=== PATIENT | male | born 1995 | race Caucasian/White ===

== ENCOUNTER 2018-09-02 13:04 | Emergency (ER) | payer BC ==
--- NOTE | 2018-09-02 14:13 | ED ---
General Adult HPI - General Stated complaint: rt knee injury Time Seen by Provider: 09/02/18 14:08 - History of Present Illness Initial comments: 23-year-old male with past history of previous right knee injury presents today for chief complaint of right knee pain x 1 day. Patient states that he was snow blowing last night when he went to take a turn and he felt his right knee give out, he denies dislocation. Since has noted right knee swelling and increasing pain, increased pain with ambulation. Patient states he has had issues with laxity since his previous right knee injury in high school. Patient denies any numbness, tingling, loss sensation, pallor or coolness of the extremity. Patient is concerned about ligamentous injury and presents today for evaluation. Upon arrival patient complaining of right knee pain. HR elevated, no acute distress. Pain does not appear out of proportion. Remaining ROS (-), patient denies falling, head injury, fever, chills, shortness of breath, chest pain, back pain, abdominal pain, nausea or vomiting, dysuria or hematuria, constipation or diarrhea, headaches or visual changes, or any other complaints. - Related Data Home Medications Medication Instructions Recorded Confirmed Dextroamphetamine/Amphetamine 20 mg PO QAM 09/02/18 09/02/18 [Adderall Xr] Previous Rx's Medication Instructions Recorded Ibuprofen 800 mg PO Q8H PRN 7 Days #21 tablet 09/02/18 Allergies Allergy/AdvReac Type Severity Reaction Status Date / Time No Known Allergies Allergy Verified 09/02/18 14:19 Review of Systems ROS Statement: Those systems with pertinent positive or pertinent negative responses have been documented in the HPI. ROS Other: All systems not noted in ROS Statement are negative. Past Medical History Past Medical History: No Reported History History of Any Multi-Drug Resistant Organisms: None Reported Past Surgical History: No Surgical Hx Reported Past Psychological History: Anxiety, Depression Smoking Status: Former smoker Past Alcohol Use History: Heavy, Occasional Past Drug Use History: Marijuana General Exam - General Exam Comments Initial Comments: General: The patient is awake and alert, in no distress, and does not appear acutely ill. Eye: Pupils are equal, round and reactive to light, extra-ocular movements are intact. No nystagmus. There is normal conjunctiva bilaterally. No signs of icterus. Ears, nose, mouth and throat: There are moist mucous membranes and no oral lesions. Cardiovascular: There is a regular rate and rhythm. No murmur, rub or gallop is appreciated. Respiratory: Lungs are clear to auscultation, respirations are non-labored, breath sounds are equal. No wheezes, stridor, rales, or rhonchi. Musculoskeletal: Upon section of the right knee there is significant soft tissue swelling, no ecchymosis. Patient is unable to fully range at the right knee secondary to pain. There is significant effusion palpated on the medial aspect of the right knee. No sign of confusion palpate on the lateral aspect. No gross deformity. Patient unable to strength testing at the knee secondary pain. Full strength and range of motion at the right hip ankle and toes. Sensation intact both proximal distal injury, compartments soft and compressible. DP pulses strong equal bilaterally 2+. Evidence of footdrop. Neurological: A&O x 3. CN II-XII intact, There are no obvious motor or sensory deficits. Coordination appears grossly intact. Speech is normal. Skin: Skin is warm and dry and no rashes or lesions are noted. Psychiatric: Cooperative, appropriate mood & affect, normal judgment. Course Vital Signs 09/02/18 14:14 Temperature 99.0 F Pulse Rate 102 H Respiratory 16 Rate Blood Pressure 140/82 O2 Sat by Pulse 100 Oximetry Medical Decision Making - Medical Decision Making 23yo male presenting to the emergency department for right knee pain. Physical examination concerning for ligamentous injury. Patient neurovascularly intact. X-ray revealed indications concerning for a MCL tear/injury. Patient has knee effusion on examination. There is no evidence of fracture of the tibia or femur, no patella fracture. No evidence of dislocation. Patient placed in a knee immobilizer. She was provided prescription for crutches. Patient was given nonweightbearing instructions. Patient was instructed to follow-up with the next 24 hours with oral intake surgery for further evaluation. Patient is given a work note, instructed not to work until orthopedic clearance. Patient was giving a starting pack of Tylenol No. 3, I discussed at length the risks associated with tylenol #3 including overdose, diction . Patient is agreeable and was educated in the proper administration of medication. Patient was given Rice instruction as well as use of ibuprofen 800 for inflammation. Discussion with patient about return parameters, denies questions at this time. Verbalized understanding. Patient was discharged in stable condition after reviewing radiographic imagings with attending shuttle bus driver Dr. Perez who agreed with impression and plan. Disposition Clinical Impression: Right knee buckling, Right knee injury Disposition: HOME SELF-CARE Condition: Good Instructions (If sedation given, give patient instructions): Knee Sprain (ED) Additional Instructions: Please use medication as discussed. Please follow-up with orthopedic surgery in the next 24 hours. ALWAYS AMBULATE WITH THE KNEE IMMOBILIZER. Please use crutches for ambulation. Please return to emergency room if the symptoms increase or worsen or for any other concerns, as discussed.. Prescriptions: Ibuprofen 800 mg PO Q8H PRN 7 Days #21 tablet PRN Reason: Pain Is patient prescribed a controlled substance at d/c from ED?: No Referrals: Cuong Taveras MD [REFERRING] - 1-2 days Zaki Garcia DO [Doctor of Osteopathic Medicine] - 1-2 days Time of Disposition: 15:13
[2018-09-02] MEDS ORDERED: KETOROLAC 30 MG/ML 1 ML VIAL IM STA (14:26)
--- NOTE | 2018-09-02 14:52 | XR ---
Right knee HISTORY: Right knee pain 3 views of the right knee, correlation prior exam 11/20/2013 Probable bone island present in the proximal metaphysis of the right tibia. There is a crescentic anna cification present within the soft tissues medial to the medial femoral condyle of the distal femur. Alignment is maintained. Ossific density medial to the patella appears well-corticated spine likely t o be chronic. Suprapatellar joint effusion is present. 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 Joint effusion. Knee MRI may be of benefit.
[2018-09-02 15:00] VITALS: BP 140/82; PULSE 102; RESP 16; TEMP 99
[2018-09-02] MEDS ORDERED: ACET/COD 300 MG/30 MG STARTER PACK 6 TAB BTL PO STA (15:14)
== END 2018-09-02 15:49 | disposition home or self-care (01) ==
LOC: EC 13:04
DX: S89.91XA Unspecified injury of right lower leg, initial encounter (principal); Z87.891 Personal history of nicotine dependence; Z79.899 Other long term (current) drug therapy; Z87.828 Personal history of other (healed) physical injury and trauma; X50.1XXA Overexertion from prolonged static or awkward postures, initial encounter; Y93.29 Activity, other involving ice and snow
CPT/HCPCS: 73562; 99283; 96372; L1830; J1885

== ENCOUNTER → 2018-09-08 | Outpatient (CLI) | payer BC ==
--- NOTE | 2018-09-08 23:12 | MR ---
EXAMINATION TYPE: MR knee RT wo con DATE OF EXAM: 09/08/2018 COMPARISON: Radiographs 09/02/2018 HISTORY: 23-year-old male with right knee pain TECHNIQUE: Multiplanar, multisequence imaging of the right knee is performed without IV contrast. FINDINGS: The ACL and PCL are intact. There is extensive edema on either side of the MCL with a some tearing of the superficial fibers. LCL complex is intact. There is a complex oblique tear involving the posterior horn and body of the medial meniscus. Mild di ffuse thinning of medial compartment articular cartilage without discrete chondral injury. Lateral meniscus is intact. However, there is a focal area of focal chondral loss that appears full-t hickness to nearly full-thickness along the mid peripheral aspect of the lateral femoral condyle deepti uring 9 mm wide and 1.3 cm AP. Underlying bone marrow edema. 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 ETT-T2 distances approximately 1.1 cm, within normal limits. The medial patellofemoral ligament appears heterogeneous and redundant in the femoral attachment is n ot well delineated. Edema extends into the medial margin of the medial rectus muscle.. Kissing contusions involving the medial patella and anterior aspect of the lateral femoral condyle. T here is a small 9 mm bone fragment along the medial margin of the patella suggesting an age indetermi mauricio small fracture, suspected old as marrow edema seems to be centered slightly lower than this joni on. There is a large knee joint effusion with loose bodies in the medial gutter of the suprapatellar pouc h. One fragment measures up to 1.6 cm, refer to sagittal image 2 and may represent the missing chondr al fragment. Extensor mechanism is intact. Mild extravasation of joint fluid within the deep soft tissues. No sizable Reese's cyst. Normal popliteal artery anatomy in muscle bulk. No suspicious bone marrow replacement. IMPRESSION: 1. Kissing contusions relating to transient lateral patellar dislocation and relocation. 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 A small 9 mm bone fragment along the medial margin of the patella is suspected to represent an old n onunited fracture fragment. The acute edema is located slightly lower. 2. Heterogeneous and lax MPFL with poorly defined femoral attachment suggesting tear. 3. Focal 9 mm wide by 1.3 cm AP full-thickness to nearly full-thickness chondral injury involving the mid peripheral aspect of the lateral femoral condyle. Associated marrow edema. The missing chondral fragment is suspected to be located in the medial gutter of the suprapatellar pouch. 4. Grade 2 MCL sprain. 5. Complex oblique tear posterior horn and body of the medial meniscus. 6. Large knee joint effusion with some extravasation of joint fluid into the deep soft tissues.
== END | disposition home or self-care (01) ==
LOC: RADMRIMAIN 10:45
PROVIDERS: ATTEND Orthopaedic Surgery
DX: S83.014A Lateral dislocation of right patella, initial encounter (principal); S83.231A Complex tear of medial meniscus, current injury, right knee, initial encounter; S80.01XA Contusion of right knee, initial encounter; S83.411A Sprain of medial collateral ligament of right knee, initial encounter; Q74.1 Congenital malformation of knee; M25.461 Effusion, right knee

== ENCOUNTER → 2018-09-23 | Outpatient (CLI) | payer BC ==
[2018-09-23 11:52] LABS: Basophils # (A) 0.1 k/uL (0-0.2); Basophils % (A) 1 %; Eosinophils # (A) 0.2 k/uL (0-0.7); Eosinophils % (A) 2 %; HCT 51.9 % (39.0-53.0); HGB 17.4 gm/dL (13.0-17.5); Lymphocytes # (A) 1.9 k/uL (1.0-4.8); Lymphocytes % (A) 28 %; MCHC 33.5 g/dL (31.0-37.0); MCV 89.7 fL (80.0-100.0); Mean Platelet Volume 6.4; Monocytes # (A) 0.5 k/uL (0-1.0); Monocytes % (A) 7 %; Neutrophils # (A) 3.9 k/uL (1.3-7.7); Neutrophils % (A) 58 %; Platelet Count 197 k/uL (150-450); RBC 5.78 m/uL (4.30-5.90); WBC 6.7 k/uL (3.8-10.6)
[2018-09-23 11:59] LABS: Potassium 4.4 mmol/L (3.5-5.1)
== END | disposition home or self-care (01) ==
LOC: LABPAT 11:23
PROVIDERS: ATTEND Orthopaedic Surgery
DX: Z01.812 Encounter for preprocedural laboratory examination (principal); M23.91 Unspecified internal derangement of right knee
CPT/HCPCS: 36415; 80051; 85025

== ENCOUNTER 2020-03-30 10:51 | Emergency (ER) | payer BC, OTHER ==
[2020-03-30 10:58] VITALS: RESP 16; TEMP 98
--- NOTE | 2020-03-30 11:17 | ED ---
Fall HPI - General Chief Complaint: Fall Stated Complaint: [facility] - rt rt knee injury Time Seen by Provider: 03/30/20 11:02 Source: patient, RN notes reviewed Mode of arrival: ambulatory Limitations: no limitations - History of Present Illness Initial Comments: 24-year-old male presents emergency from chief complaint of right knee pain. Patient states that he was walking when a mat slipped as job site. Patient states that his knee went laterally. Patient states she has medial knee pain. Patient states he had surgery approximately year and half ago. Patient states that his orthopedic surgeon Dr. Garcia. Patient states he is able to family but states it's moderate discomfort. Patient states he feels loose. Patient denies any other injuries from his fall. - Related Data Home Medications Medication Instructions Recorded Confirmed Dextroamphetamine/Amphetamine 20 mg PO QAM 09/02/18 10/07/18 [Adderall Xr] Previous Rx's Medication Instructions Recorded Ibuprofen 800 mg PO Q8H PRN 7 Days #21 tablet 09/02/18 HYDROcodone/APAP 5-325MG [[place] 5] 1 each PO Q6HR PRN #12 tab 10/07/18 Ibuprofen [Motrin] 600 mg PO Q8HR PRN #20 tab 03/30/20 Allergies Allergy/AdvReac Type Severity Reaction Status Date / Time No Known Allergies Allergy Verified 03/30/20 10:54 Review of Systems ROS Statement: Those systems with pertinent positive or pertinent negative responses have been documented in the HPI. ROS Other: All systems not noted in ROS Statement are negative. Past Medical History Past Medical History: No Reported History History of Any Multi-Drug Resistant Organisms: None Reported Past Surgical History: No Surgical Hx Reported Additional Past Surgical History / Comment(s): right knee sx 2019 Past Psychological History: Anxiety, Depression Smoking Status: Never smoker Past Alcohol Use History: Heavy, Occasional Past Drug Use History: Marijuana General Exam Limitations: no limitations General appearance: alert, in no apparent distress Head exam: Present: atraumatic, normocephalic, normal inspection Eye exam: Present: normal appearance, PERRL, EOMI. Absent: scleral icterus, conjunctival injection, periorbital swelling Respiratory exam: Present: normal lung sounds bilaterally. Absent: respiratory distress, wheezes, rales, rhonchi, stridor Cardiovascular Exam: Present: regular rate, normal rhythm, normal heart sounds. Absent: systolic murmur, diastolic murmur, rubs, gallop, clicks Extremities exam: Present: other (Right knee there is pain with valgus, no definite laxity, neurovascular intact there is no localized tenderness with palpation, neurovascular intact, no pain above and below the right knee) Course Vital Signs 03/30/20 10:54 Temperature 98.0 F Pulse Rate 95 Respiratory 16 Rate Blood Pressure 139/98 O2 Sat by Pulse 100 Oximetry Medical Decision Making - Medical Decision Making Peripheral presented for right knee pain x-ray does not show any bony osseous lesion. Patient had prior ligamentous injuries to be placed any immobilizer and follow-up with his orthopedic surgeon. Disposition Clinical Impression: Fall, Right knee sprain Disposition: HOME SELF-CARE Condition: Stable Instructions (If sedation given, give patient instructions): Knee Sprain (ED) Additional Instructions: Please return to the Emergency Department if symptoms worsen or any other con cerns. Prescriptions: Ibuprofen [Motrin] 600 mg PO Q8HR PRN #20 tab PRN Reason: Pain Is patient prescribed a controlled substance at d/c from ED?: No Referrals: Kenna Perez MD [Primary Care Provider] - 1-2 days Zaki Garcia DO [Doctor of Osteopathic Medicine] - 1-2 days Time of Disposition: 11:55
--- NOTE | 2020-03-30 11:33 | XR ---
EXAMINATION TYPE: XR knee complete RT DATE OF EXAM: 03/30/2020 COMPARISON: 09/02/2018 HISTORY: Pain TECHNIQUE: Three views are submitted. FINDINGS: Joint spaces are preserved. Osseous structures are intact. No acute fracture seen. Well-corticated density seen along the medial femoral condyle could be related to remote trauma. Sclerotic lesion in volving the proximal diaphysis tibia could be associated with a bone island. IMPRESSION: 1. No acute fracture or dislocation. If there is concern for ligamentous injury correlate with MRI a s clinically warranted
[2020-03-30 12:12] VITALS: BP 132/86; PULSE 86
== END 2020-03-30 12:09 | disposition home or self-care (01) ==
LOC: EC 10:51
DX: S83.91XA Sprain of unspecified site of right knee, initial encounter (principal); M21.061 Valgus deformity, not elsewhere classified, right knee; W01.10XA Fall on same level from slipping, tripping and stumbling with subsequent striking against unspecified object, initial encounter; Y92.69 Other specified industrial and construction area as the place of occurrence of the external cause; Y99.0 Civilian activity done for income or pay
CPT/HCPCS: 99283

== ENCOUNTER → 2020-04-05 | Outpatient (CLI) | payer OTHER ==
--- NOTE | 2020-04-05 16:56 | MR ---
EXAMINATION TYPE: MR knee RT wo con DATE OF EXAM: 04/05/2020 COMPARISON: 09/08/2018 HISTORY: Right knee pain, S/P fall 1 week ago TECHNIQUE: Multiplanar, multisequence imaging of the right knee is performed without IV contrast. FINDINGS: MEDIAL MENISCUS: There is a complex tear the posterior horn medial meniscus communicating with the in ferior articular surface. Anterior horn medial meniscus is intact. LATERAL MENISCUS: Anterior and posterior horns are intact without tear. Mild horizontal degenerative type change may be in the posterior horn lateral meniscus. CRUCIATE LIGAMENTS: The anterior and posterior cruciate ligaments are intact and unremarkable. COLLATERAL LIGAMENTS: The medial collateral ligament and lateral collateral ligament complex are inta ct and unremarkable. EXTENSOR MECHANISM: Visualized quadriceps and patellar tendons are intact. EFFUSION: Small joint effusion is present. This is smaller than the comparison study. POPLITEAL CYST: No popliteal/cuello cyst. TRICOMPARTMENT SPACES: No significant narrowing is evident. There is preservation of the cartilage es pecially at the patellofemoral joint space. CARTILAGE: Segment of the posterior lateral femoral condylar cartilage is diminished signal. This are a was previously identified and appears stable in size. There is thinning of the tibial plateau artic ular cartilage diffusely. BONE MARROW SIGNAL: There is increased signal within the anterior lateral femur. Findings can be comp atible with contusion. Minimal increased signal is adjacent to the medial femoral condyle near the ca rtilaginous loss. OTHER: No additional significant abnormality is appreciated. IMPRESSION: 1. Complex tear posterior horn medial meniscus. 2. Loss of the cartilage of the lateral posterior femoral cartilage stable from comparison. 3. Small joint effusion, smaller than comparison. 4. Anterior medial femoral contusion
== END | disposition home or self-care (01) ==
LOC: RADMRIMAIN 14:20
PROVIDERS: ATTEND Orthopaedic Surgery
DX: S83.231A Complex tear of medial meniscus, current injury, right knee, initial encounter (principal); S80.01XA Contusion of right knee, initial encounter

== ENCOUNTER → 2020-04-05 | Outpatient (CLI) | payer OTHER | END | disposition home or self-care (01) | LOC: RADMRIMAIN 07:36 | PROVIDERS: ATTEND Orthopaedic Surgery | DX: Z53.9 Procedure and treatment not carried out, unspecified reason (principal) ==

== ENCOUNTER → 2020-04-24 | Outpatient (CLI) | payer BC ==
[2020-04-24 13:55] LABS: Basophils # (A) 0.1 k/uL (0-0.2); Basophils % (A) 1 %; Eosinophils # (A) 0.3 k/uL (0-0.7); Eosinophils % (A) 4 %; HCT 45.7 % (39.0-53.0); HGB 15.2 gm/dL (13.0-17.5); Lymphocytes # (A) 2.5 k/uL (1.0-4.8); Lymphocytes % (A) 33 %; MCH 30.5 pg (25.0-35.0); MCHC 33.2 g/dL (31.0-37.0); MCV 91.8 fL (80.0-100.0); Monocytes # (A) 0.7 k/uL (0-1.0); Monocytes % (A) 9 %; Neutrophils # (A) 3.8 k/uL (1.3-7.7); Neutrophils % (A) 50 %; Platelet Count 223 k/uL (150-450); RBC 4.97 m/uL (4.30-5.90); RDW 13.2 % (11.5-15.5); WBC 7.6 k/uL (3.8-10.6)
[2020-04-24 14:41] LABS: Potassium 4.7 mmol/L (3.5-5.1)
== END | disposition home or self-care (01) ==
LOC: LABPAT 13:34
PROVIDERS: ATTEND Orthopaedic Surgery
DX: Z01.818 Encounter for other preprocedural examination (principal); M23.91 Unspecified internal derangement of right knee
CPT/HCPCS: 36415; 80051; 85025

== ENCOUNTER 2020-04-26 14:10 | Day surgery (SDC) | payer BC, OTHER ==
[2020-04-24 14:50] VITALS: BMI 27.1
--- NOTE | 2020-04-25 15:20 | HP ---
HISTORY AND PHYSICAL DATE OF SURGERY: 04/26/2020 Keanu Davis is a 24-year-old gentleman seen with progressive right knee pain. We discussed options. He elected to proceed with arthroscopy. Consent was obtained. PAST MEDICAL HISTORY: Attention deficit disorder. PAST SURGICAL HISTORY: Right knee arthroscopy. DAILY MEDICATIONS: Adderall, ibuprofen. ALLERGIES: NONE. SOCIAL HISTORY: Denies tobacco use. PHYSICAL EVALUATION OF RIGHT KNEE: Range of motion is negative 2 to 100. Moderate effusion. Tenderness along the medial and lateral joint lines. Positive medial Izabel's. Positive lateral Izabel's. Ligaments stable. Hip rotation without pain. Distal neurovascular exam is intact. RADIOGRAPHS: Right knee radiographs revealed no osseous abnormality. MRI right knee revealed a complex medial meniscal tear. IMPRESSION: Internal derangement of the right knee with medial meniscal tear. PLAN: Right knee arthroscopy with partial meniscectomy, partial synovectomy and debridement. MMODL / IJN: [id number] /
[~2020-04-26 14:10] MED LIST: DEXAMETHASONE SOD PHOSPHATE 10 MG/ML 1 ML VIAL IV ONE; LACTATED RINGERS 1,000 ML IV SCH; LIDOCAINE 1% (10MG/ML) FOR IV START INTRADERMA PRN; ONDANSETRON 4 MG/2 ML VIAL ONE
[2020-04-26] MEDS ORDERED: MIDAZOLAM 2 MG/2 ML VIAL IV ONE (15:10)
[2020-04-26] MEDS ORDERED: BUPIVACAINE (PF) 0.25% 30 ML VIAL INTRAARTIC ONE ×2 (15:57→16:19)
[2020-04-26] MEDS ORDERED: fentaNYL (PF) 50 MCG/ML 2 ML AMP ONE (15:57)
[2020-04-26] MEDS ORDERED: MIDAZOLAM 2 MG/2 ML VIAL ONE (15:57)
[2020-04-26] MEDS ORDERED: LIDOCAINE 1% INJ 10MG/ML (20 ML MDV) ONE (15:57)
[2020-04-26] MEDS ORDERED: PROPOFOL 10 MG/ML 20 ML VIAL IV ONE (15:57)
[2020-04-26] MEDS ORDERED: HYDROmorphone (PF) 1 MG/ML ONE (15:57)
--- NOTE | 2020-04-26 16:55 | P.OP ---
Date of Procedure: 04/26/20 Preoperative Diagnosis: Internal derangement right knee Postoperative Diagnosis: 1. Tear medial meniscus right knee 2. Reactive synovitis medial, lateral and suprapatellar compartments right knee Procedure(s) Performed: 1. Arthroscopic partial medial meniscectomy right knee 2. Arthroscopic partial synovectomy medial, lateral and suprapatellar compartments right knee Anesthesia: CARINAA, local Surgeon: Zaki Garcia Estimated Blood Loss (ml): 6 Pathology: none sent Condition: stable Disposition: PACU Indications for Procedure: 24-year-old patient seen with progressive right knee pain. After treatment options were discussed, he elected to proceed with arthroscopy. Operative Findings: See description of procedure Description of Procedure: Patient was taken to the operative suite. Patient underwent a general anes thetic by the department of anesthesia. Patient was given preoperative antibiotics. The right lower extremity was placed in a well-padded arthroscopic leg razo. The right leg was prepped and draped in the normal sterile orthopedic fashion. A lateral parapatellar and suprapatellar incision was made. Trochars were inserted. Arthroscopy was initiated. Suprapatellar pouch revealed diffuse thick reactive synovitis. The patellofemoral joint appeared to articulate congruently. There was no chondromalacia present. The scope was guided into the medial gutter. No loose bodies or plica were identified. The scope was then guided into the medial compartment. A medial parapatellar incision was made. Trocar inserted followed by probe. There was a complex tear involving the posterior medial meniscus. There was thick reactive synovitis anteriorly. There was no chondromalacia. I performed a partial medial meniscectomy getting down to stable meniscal tissue. I now performed a partial synovectomy decompressing the reactive synovitis. The residual meniscus was probed and it was stable. There was good decompression of synovitis. Scope and probe were then guided into the intercondylar notch. Cruciates were identified, probed and found to be stable. The scope and probe were then guided into lateral compartment. Lateral meniscus was probed and found to be stable. There was no chondromalacia involving lateral compartment area there was thick reactive synovitis anteriorly. I introduced a motorized shaver and performed a partial synovectomy decompressing the reactive synovitis. The shaver was removed. There was good decompression of synovitis. The scope was in guided back into the suprapatellar compartment. I introduced a motorized shaver into the suprapatellar compartment. I debrided some piecemeal fragments of meniscus I encountered. I performed a partial synovectomy decompressing reactive synovitis. The shaver was removed. There was good decompression of the synovitis. I now took one more look on the entire knee, no residual debris. Instruments were now removed from the joint. The joint was infiltrated with .25% Marcaine. Steri-Strips were applied to the portal sites. Sterile dressings were applied. The patient was placed into a TRELL hose. No tourniquet was utilized. The patient was awakened, transferred to a bed and taken to recovery stable satisfactory condition.
[2020-04-26] MEDS ORDERED: HYDROmorphone 1 MG/ML 1 ML SYRINGE IVP ONE (17:00)
[2020-04-26] MEDS ORDERED: KETOROLAC 15 MG/ML 1 ML VIAL IVP ONE (17:05)
[2020-04-26] MEDS ORDERED: LACTATED RINGERS 1,000 ML IV ONE (17:09)
[2020-04-26 17:20] VITALS: TEMP 97.9
[2020-04-26 17:22] VITALS: RESP 16
[2020-04-26] MEDS ORDERED: HYDROcodone/APAP 5-325MG 1 EACH TAB PO ONE ×2 (17:35→17:38)
[2020-04-26] MEDS ORDERED: HYDROcodone/APAP 5-325MG 1 EACH TAB ONE (17:36)
[2020-04-26 17:47] VITALS: BP 145/94; PULSE 78
== END 2020-04-26 18:01 | disposition home or self-care (01) ==
LOC: OR 14:10
PROVIDERS: ATTEND Orthopaedic Surgery
DX: S83.231A Complex tear of medial meniscus, current injury, right knee, initial encounter (principal); M65.861 Other synovitis and tenosynovitis, right lower leg; X58.XXXA Exposure to other specified factors, initial encounter; F98.8 Other specified behavioral and emotional disorders with onset usually occurring in childhood and adolescence; Z79.899 Other long term (current) drug therapy
CPT/HCPCS: 29881; J2250; J1100; J0690; J2405; J2001; J3010; J1170; J1885; J2704

== ENCOUNTER 2020-08-26 15:12 | Emergency (ER) | payer OTHER, BC ==
[2020-08-26 15:26] VITALS: RESP 18; TEMP 98.9
[2020-08-26] MEDS ORDERED: ACETAMINOPHEN TAB 325 MG TAB PO STA (15:44)
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
[2020-08-26 18:02] VITALS: BP 145/91; PULSE 107
== END 2020-08-26 18:02 | disposition home or self-care (01) ==
LOC: EC 15:12
DX: S30.1XXA Contusion of abdominal wall, initial encounter (principal); R51.9 Headache, unspecified; Y93.89 Activity, other specified; Y92.410 Unspecified street and highway as the place of occurrence of the external cause; V47.5XXA Car driver injured in collision with fixed or stationary object in traffic accident, initial encounter
CPT/HCPCS: 70450; 71045; 72125; 72170; 99284

== ENCOUNTER 2023-05-10 14:17 | Emergency (ER) | payer BC, MEDICAID ==
[2023-05-10] MEDS ORDERED: SODIUM CHLORIDE 0.9% 500 ML 500 ML IV STA (14:43)
--- NOTE | 2023-05-10 14:44 | ED ---
General Adult HPI - General Chief complaint: ENT Stated complaint: Sore throat,Lethargic Source: patient Mode of arrival: ambulatory Limitations: no limitations - History of Present Illness Initial comments: The patient's a 27-year-old gentleman is otherwise healthy presents emergency room with flulike symptoms. Patient states he initially had a sore throat and fever that started about 4 days ago. He continues to have a cough however the sore throat is improved. Patient complains of severe fatigue and decreased appetite. He denies any pain. Denies any vomiting or diarrhea. Patient has had a decreased appetite. His was sick but not as bad. - Related Data Home Medications Medication Instructions Recorded Confirmed Dextroamphetamine/Amphetamine 20 mg PO QAM PRN 09/02/18 04/24/20 [Adderall Xr] Previous Rx's Medication Instructions Recorded Ibuprofen 800 mg PO Q8H PRN 7 Days #21 tablet 09/02/18 Hydrocodone/Acetaminophen [[place] 1 each PO Q6HR PRN #15 tab 04/26/20 5-325] Allergies Allergy/AdvReac Type Severity Reaction Status Date / Time No Known Allergies Allergy Verified 05/10/23 14:23 Review of Systems ROS Statement: Those systems with pertinent positive or pertinent negative responses have been documented in the HPI. ROS Other: All systems not noted in ROS Statement are negative. Past Medical History Past Medical History: No Reported History History of Any Multi-Drug Resistant Organisms: None Reported Past Surgical History: No Surgical Hx Reported Additional Past Surgical History / Comment(s): right knee sx 2019 Past Psychological History: Anxiety, Depression Smoking Status: Never smoker Past Alcohol Use History: Occasional Past Drug Use History: Marijuana General Exam Limitations: no limitations General appearance: alert, in no apparent distress Head exam: Present: atraumatic Eye exam: Present: normal appearance, EOMI ENT exam: Present: normal exam, normal oropharynx, mucous membranes dry, other (No tonsillar swelling erythema or exudate,no muffled speech or drooling. Airway intact) Neck exam: Present: normal inspection, full ROM, other (No nuchal rigidity) Respiratory exam: Present: normal lung sounds bilaterally, other (No respiratory distress no wheezing or crackles heard on exam.) Cardiovascular Exam: Present: regular rate, tachycardia GI/Abdominal exam: Present: soft Extremities exam: Present: full ROM Back exam: Present: full ROM Neurological exam: Present: alert, oriented X3, CN II-XII intact, other (No meningeal signs) Psychiatric exam: Present: normal affect, normal mood Skin exam: Present: warm, dry Course Vital Signs 05/10/23 14:22 Temperature 98.2 F Pulse Rate 113 H Respiratory 18 Rate Blood Pressure 151/94 O2 Sat by Pulse 98 Oximetry - Reevaluation(s) Reevaluation #1: 05/10/23 16:20 Patient's whelping emergency room. He is in no respiratory distress. He is nontoxic appearing. Vital signs are stable. He received fluids in the e mergency room. I discussed lab and imaging results with the patient. Patient's labs are unremarkable. He has no leukocytosis. Flu RSV and Covid are negative. Chest x-ray is negative for pneumonia or other acute changes. I discussed management of a viral syndrome with the patient. Discussed rest and fluid intake. Discussed return to a regular diet. He understands and agrees to treatment and discharge sign. Medical Decision Making - Medical Decision Making Was pt. sent in by a medical professional or institution (, PA, GUN MECHANIC, urgent care, hospital, or fdc...) When possible be specific @ -[No] Did you speak to anyone other than the patient for history (EMS, parent, family, police, friend...)? What history was obtained from this source @ -[No] Did you review nursing and triage notes (agree or disagree)? Why? @ -[I reviewed and agree with nursing and triage notes] Were old charts reviewed (outside hosp., previous admission, EMS record, old EKG, old radiological studies, urgent care reports/EKG's, fdc records)? Report findings @ -[No old charts were reviewed] Differential Diagnosis (chest pain, altered mental status, abdominal pain women, abdominal pain men, vaginal bleeding, weakness, fever, dyspnea, syncope, headache, dizziness, GI bleed, back pain, seizure, CVA, palpatations, mental health, musculoskeletal)? @ -Viral syndrome, URI, Covid, RSV, influenza EKG interpreted by me (3pts min.). @ -[As above] X-rays interpreted by me (1pt min.). @ -Chest x-ray is negative for any cardiomegaly, and obvious pneumonia, pneumothorax or other acute changes. Radiology report is pending for confirmation of acute changes.] CT interpreted by me (1pt min.). @ -[None done] U/S interpreted by me (1pt. min.). @ -[None done] What testing was considered but not performed or refused? (CT, X-rays, U/S, labs)? Why? @ -[None] What meds were considered but not given or refused? Why? @ -[None] Did you discuss the management of the patient with other professionals (professionals i.e. DrLiz, PA, GUN MECHANIC, lab, RT, psych nurse, social service coordinator, furnace helper, teacher, security officer, telephonic case manager)? Give summary @ discussed patient's symptoms are And disposition with attending ED physician Dr. Perez today. Was smoking cessation discussed for >3mins.? @ -[No] Was critical care preformed (if so, how long)? @ -[No] Were there social determinants of health that impacted care today? How? (Homelessness, low income, unemployed, alcoholism, drug addiction, transportation, low edu. Level, literacy, decrease access to med. care, fci, rehab)? @ -[No] Was there de-escalation of care discussed even if they declined (Discuss DNR or withdrawal of care, Hospice)? DNR status @ -[No] What co-morbidities impacted this encounter? (DM, HTN, Smoking, COPD, CAD, Cancer, CVA, ARF, Chemo, Hep., AIDS, mental health diagnosis, sleep apnea, morbid obesity)? @ -[None] Was patient admitted / discharged? Hospital course, mention meds given and route, prescriptions, significant lab abnormalities, going to OR and other pertinent info. @ -[The patient is nontoxic-appearing in the emergency room. He is in no respiratory distress vital signs are stable. Patient received IV fluids emergency room. There is no indication for hospitalization is required at this time. Patient stable to follow-up as an outpatient with PCP. problem with uncertain prognosis? @ -[No] Drug Therapy requiring intensive monitoring for toxicity (Heparin, Nitro, Insulin, Cardizem)? @ -[No] Were any procedures done? @ -[No] Diagnosis/symptom? @ -[viral syndrome] Acute, or Chronic, or Acute on Chronic? @ -[acute] Uncomplicated (without systemic symptoms) or Complicated (systemic symptoms)? @ -[uncomplicated] Side effects of treatment? @ -[No] Exacerbation, Progression, or Severe Exacerbation? @ -[No] Poses a threat to life or bodily function? How? (Chest pain, [place], NH, pneumonia, PE, COPD, DKA, ARF, appy, cholecystitis, CVA, Diverticulitis, Homicidal, Suicidal, threat to staff... and all critical care pts) @ -[No] - Lab Data Result diagrams: 05/10/23 15:00 05/10/23 15:00 Lab Results 05/10/23 05/10/23 05/10/23 Range/Units 15:00 15:00 15:00 WBC 6.0 (3.8-10.6) k/uL RBC 5.47 (4.30-5.90) m/uL Hgb 16.8 (13.0-17.5) gm/dL Hct 48.9 (39.0-53.0) % MCV 89.4 (80.0-100.0) fL MCH 30.8 (25.0-35.0) pg MCHC 34.4 (31.0-37.0) g/dL RDW 12.9 (11.5-15.5) % Plt Count 237 (150-450) k/uL MPV 6.9 Neutrophils % 63 % Lymphocytes % 29 % Monocytes % 4 % Eosinophils % 2 % Basophils % 0 % Neutrophils # 3.7 (1.3-7.7) k/uL Lymphocytes # 1.8 (1.0-4.8) k/uL Monocytes # 0.3 (0-1.0) k/uL Eosinophils # 0.1 (0-0.7) k/uL Basophils # 0.0 (0-0.2) k/uL Sodium 142 (137-145) mmol/L Potassium 4.0 (3.5-5.1) mmol/L Chloride 100 (98-107) mmol/L Carbon Dioxide 25 (22-30) mmol/L Anion Gap 17 mmol/L BUN 11 (9-20) mg/dL Creatinine 0.71 (0.66-1.25) mg/dL Est GFR (CKD-EPI)AfAm >90 (>60 ml/min/1.73 sqM) Est GFR (CKD-EPI)NonAf >90 (>60 ml/min/1.73 sqM) Glucose 144 H (74-99) mg/dL Calcium 9.8 (8.4-10.2) mg/dL Total Bilirubin 0.5 (0.2-1.3) mg/dL AST 46 (17-59) U/L ALT 32 (4-49) U/L Alkaline Phosphatase 65 (38-126) U/L Total Protein 7.6 (6.3-8.2) g/dL Albumin 4.8 (3.5-5.0) g/dL TSH 1.350 (0.465-4.680) mIU/L Influenza Type A (PCR) (Not Detectd) Influenza Type B (PCR) (Not Detectd) RSV (PCR) (Not Detectd) SARS-CoV-2 (PCR) (Not Detectd) Group A Strep (PCR) NOT DETECTED (Not Detectd) 05/10/23 Range/Units 15:00 WBC (3.8-10.6) k/uL RBC (4.30-5.90) m/uL Hgb (13.0-17.5) gm/dL Hct (39.0-53.0) % MCV (80.0-100.0) fL MCH (25.0-35.0) pg MCHC (31.0-37.0) g/dL RDW (11.5-15.5) % Plt Count (150-450) k/uL MPV Neutrophils % % Lymphocytes % % Monocytes % % Eosinophils % % Basophils % % Neutrophils # (1.3-7.7) k/uL Lymphocytes # (1.0-4.8) k/uL Monocytes # (0-1.0) k/uL Eosinophils # (0-0.7) k/uL Basophils # (0-0.2) k/uL Sodium (137-145) mmol/L Potassium (3.5-5.1) mmol/L Chloride (98-107) mmol/L Carbon Dioxide (22-30) mmol/L Anion Gap mmol/L BUN (9-20) mg/dL Creatinine (0.66-1.25) mg/dL Est GFR (CKD-EPI)AfAm (>60 ml/min/1.73 sqM) Est GFR (CKD-EPI)NonAf (>60 ml/min/1.73 sqM) Glucose (74-99) mg/dL Calcium (8.4-10.2) mg/dL Total Bilirubin (0.2-1.3) mg/dL AST (17-59) U/L ALT (4-49) U/L Alkaline Phosphatase (38-126) U/L Total Protein (6.3-8.2) g/dL Albumin (3.5-5.0) g/dL TSH (0.465-4.680) mIU/L Influenza Type A (PCR) Not Detected (Not Detectd) Influenza Type B (PCR) Not Detected (Not Detectd) RSV (PCR) Not Detected (Not Detectd) SARS-CoV-2 (PCR) Not Detected (Not Detectd) Group A Strep (PCR) (Not Detectd) - Radiology Data Radiology results: report reviewed, image reviewed Disposition Clinical Impression: Viral syndrome, Fatigue, URI (upper respiratory infection) Disposition: HOME SELF-CARE Condition: Good Instructions (If sedation given, give patient instructions): Viral Syndrome (ED), Upper Respiratory Infection (ED) Is patient prescribed a controlled substance at d/c from ED?: No If prescribed controlled substance>3 days was MAPS reviewed?: No Referrals: Shantelle Hammond MD [Primary Care Provider] - 1-2 days Time of Disposition: 16:24
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
[2023-05-10 15:22] LABS: Basophils % (A) 0 %; Eosinophils # (A) 0.1 k/uL (0-0.7); Eosinophils % (A) 2 %; HCT 48.9 % (39.0-53.0); HGB 16.8 gm/dL (13.0-17.5); Lymphocytes # (A) 1.8 k/uL (1.0-4.8); Lymphocytes % (A) 29 %; MCH 30.8 pg (25.0-35.0); MCHC 34.4 g/dL (31.0-37.0); MCV 89.4 fL (80.0-100.0); Mean Platelet Volume 6.9; Monocytes # (A) 0.3 k/uL (0-1.0); Monocytes % (A) 4 %; Neutrophils # (A) 3.7 k/uL (1.3-7.7); Neutrophils % (A) 63 %; Platelet Count 237 k/uL (150-450); RBC 5.47 m/uL (4.30-5.90); RDW 12.9 % (11.5-15.5)
[2023-05-10 15:37] LABS: ALT 32 U/L (4-49); AST 46 U/L (17-59); African American GFR (CKD) >90 (>60 ml/min/1.73 sqM); Albumin 4.8 g/dL (3.5-5.0); Alkaline Phosphatase 65 U/L (38-126); Anion Gap 17 mmol/L; Blood Urea Nitrogen 11 mg/dL (9-20); Calcium 9.8 mg/dL (8.4-10.2); Carbon Dioxide 25 mmol/L (22-30); Chloride 100 mmol/L (98-107); Glucose 144 mg/dL (74-99); Non-African American GFR(CKD) >90 (>60 ml/min/1.73 sqM); Sodium 142 mmol/L (137-145); Total Bilirubin 0.5 mg/dL (0.2-1.3); Total Protein 7.6 g/dL (6.3-8.2)
[2023-05-10 18:56] VITALS: BP 152/78; PULSE 82; RESP 16; TEMP 98
== END 2023-05-10 16:30 | disposition home or self-care (01) ==
LOC: EC 14:17
DX: J06.9 Acute upper respiratory infection, unspecified (principal); F41.9 Anxiety disorder, unspecified; F32.A Depression, unspecified; F12.90 Cannabis use, unspecified, uncomplicated; Z20.822 Contact with and (suspected) exposure to COVID-19; Z79.899 Other long term (current) drug therapy
CPT/HCPCS: 36415; 71046; 80053; 84443; 85025; 87636; 87651; 96360; 99284

== ENCOUNTER → 2024-07-06 | Outpatient (CLI) | payer MEDICAID ==
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
== END | disposition home or self-care (01) ==
LOC: RADMRIMAIN 21:45
PROVIDERS: ATTEND Student in an Organized Health Care Education/Training Program
DX: M17.11 Unilateral primary osteoarthritis, right knee (principal); M25.361 Other instability, right knee